=== PATIENT | female | born 1950 | race Caucasian/White ===

== ENCOUNTER 2016-12-01 19:26 | Emergency (ER) | payer BC ==
[2016-12-01 19:46] VITALS: BP 149/70
[2016-12-01] MEDS ORDERED: Tetan/Diph/Pertus SYR(Tdap)* 0.5 ML SYR(BOOSTRIX) use SYR IM ONE (20:04)
[2016-12-01] MEDS ORDERED: Amoxicillin/Clavulanate TAB* 875 MG PO ONE (20:07)
--- NOTE | 2016-12-01 20:10 | UC ---
Hand/Wrist HPI - HPI Summary HPI Summary: Entered friend's house earlier tonight and was accosted by household dog, got bitten in R hand. Small lac at dorsal base of thumb and small lac on palm. Unsure of last tetanus, may have been 15 years ago. - History Of Current Complaint Chief Complaint: UCBiteInjury Stated Complaint: DOG BITE Time Seen by Provider: 12/01/16 19:45 Hx Obtained From: Patient Hx Last Menstrual Period: post menopausal ?: No Onset/Duration: Sudden Onset Severity Initially: Mild Severity Currently: Mild Character Of Pain: Dull Alleviating: Nothing Associated Signs And Symptoms: Positive: Negative Related History: Dominant Hand Right - Allergies/Home Medications Allergies/Adverse Reactions: Allergies Allergy/AdvReac Type Severity Reaction Status Date / Time Sulfa Antibiotics Allergy Rash Verified 12/01/16 19:46 Home Medications: Home Medications Azithromycin TAB* [Zithromax TAB (Z-NOEL) 250 mg #6 tabs] 12/01/16 [History Confirmed 12/01/16] PMH/Surg Hx/FS Hx/Imm Hx Endocrine History Of: Denies: Diabetes, Thyroid Disease Cardiovascular History Of: Denies: Cardiac Disorders, Hypertension Respiratory History Of: Reports: Asthma Denies: COPD GI/ History Of: Denies: Ulcer Cancer History Of: Denies: Breast Cancer - Surgical History Surgical History: Yes Surgery Procedure, Year, and Place: TONSILECTOMY; THYROIDECTOMY (1/2) - Family History Known Family History: Negative: Blood Disorder - Social History Occupation: Retired Lives: Alone Alcohol Use: Occasionally Alcohol Amount: FEW DRINKS/MONTH Substance Use Type: None Smoking Status (MU): Never Smoked Tobacco Have You Smoked in the Last Year: No Review of Systems Constitutional: Negative Skin: Other - dog bite to hand Eyes: Negative ENT: Negative Respiratory: Negative Cardiovascular: Negative Gastrointestinal: Negative Genitourinary: Negative Motor: Negative Neurovascular: Negative Musculoskeletal: Negative Neurological: Negative Psychological: Negative All Other Systems Reviewed And Are Negative: Yes Physical Exam Triage Information Reviewed: Yes Appearance: Well-Appearing, No Pain Distress, Well-Nourished Vital Signs: Initial Vital Signs Temp 98.1 F 12/01/16 19:37 Pulse 78 12/01/16 19:37 Resp 16 12/01/16 19:37 BP 149/70 12/01/16 19:37 Pulse Ox 96 12/01/16 19:37 Vital Signs Reviewed: Yes Eye Exam: Normal Eyes: Positive: Conjunctiva Clear ENT Exam: Normal ENT: Positive: Normal ENT inspection, Hearing grossly normal, Pharynx normal, TMs normal Dental Exam: Normal Neck exam: Normal Neck: Positive: Supple, Nontender, No Lymphadenopathy Respiratory Exam: Normal Respiratory: Positive: Chest non-tender, Lungs clear, Normal breath sounds, No respiratory distress, No accessory muscle use Cardiovascular Exam: Normal Cardiovascular: Positive: RRR, No Murmur Musculoskeletal Exam: Normal Musculoskeletal: Positive: Strength Intact, ROM Intact Neurological Exam: Normal Neurological: Positive: Alert Psychological Exam: Normal Skin Exam: Other - R hand 1cm lac at base of thumb, 1.24cm lac on palm Hand/Wrist Course/Dx - Differential Dx/Diagnosis Provider Diagnoses: dog bite. hand lacerations -- no repair. Elevated blood pressure due to discomfort Discharge - Discharge Plan Condition: Stable Disposition: HOME Prescriptions: Amoxicillin/Clavulanate TAB* [Augmentin TAB 875*] 875 mg PO BID #9 tab Patient Education Materials: Animal Bite (ED) Referrals: Jase Bernardo MD [Primary Care Provider] - Additional Instructions: If you have significant redness, swelling, or streaking up the arm, or if you are concerned about the strength of your hand, please go to the emergency department.
== END 2016-12-01 20:25 | disposition home or self-care (01) ==
LOC: UCEAST 19:26
DX: S61.411A Laceration without foreign body of right hand, initial encounter (principal); W54.0XXA Bitten by dog, initial encounter; J45.909 Unspecified asthma, uncomplicated; N95.9 Unspecified menopausal and perimenopausal disorder; Z88.3 Allergy status to other anti-infective agents; R03.0 Elevated blood-pressure reading, without diagnosis of hypertension
CPT/HCPCS: 90471; 90715; 99213; A9270-GY; G0463